=== PATIENT | male | born 1970 | race Caucasian/White ===

== ENCOUNTER → 2017-10-08 16:24 | Outpatient (CLI) | payer OTHER, SELFPAY ==
--- NOTE | 2017-10-08 | XR_ITS ---
XR lumbar spine min 4V Ordering Physician: Loida Appiah Patient Age: 47 years: Male HISTORY: ITS.REASON: LOW BAck pain TECHNIQUE: Five-view lumbar spine series. COMPARISON :None relevant FINDINGS Vertebral bodies are intact . No compression fractures or lesions evident. L5/S1. Mild disc space narrowing and I believe scant anterolisthesis of L5 on S1. Likely 2 mm. Cyst is most likely due to some early degenerative facet changes in this changes at this level the pars interarticularis is thin on right but I believe remains intact bilaterally. Mild Degenerative facet changes bilaterally lower most L-spine most evident at L5/S1 less evident L4/5. Borderline narrowing posterior aspect of L4/5 disc level generous lumbar lordosis from L4 through S1. Pedicles intact as are transverse processes and SI joints. IMPRESSION: 1. Mild degenerative disc space narrowing L5/S1 with mild facet arthropathy L5/S1. These mild degenerative features appear to yield subtle 2-3 mm anterolisthesis of L5 on S1.
== END ==
PROVIDERS: Visit Provider Nurse Practitioner Family
DX: M54.5 Low back pain (principal)
CPT/HCPCS: 72110

== ENCOUNTER → 2021-09-09 16:58 | Outpatient (CLI) | payer OTHER, SELFPAY ==
--- NOTE | 2021-09-09 17:09 | XR_ITS ---
PROCEDURE INFORMATION: Exam: XR Right Knee Exam date and time: 09/09/2021 5:02 PM Age: 50 years old Clinical indication: Knee; Right; Patient HX: Pain for awhile unknown injury TECHNIQUE: Imaging protocol: Radiologic exam of the Right knee. Views: 3 views. COMPARISON: No relevant prior studies available. FINDINGS: Bones/joints: Minimal lateral tibial spine degenerative osteophyte formation. No acute fracture or dislocation. Soft tissues: Normal. IMPRESSION: No acute fracture or dislocation.
== END ==
PROVIDERS: PCP Nurse Practitioner; Visit Provider Nurse Practitioner
DX: M25.561 Pain in right knee (principal)
CPT/HCPCS: 73562

== ENCOUNTER 2022-01-07 16:00 | Outpatient (RCR) | payer OTHER, SELFPAY | END 2022-02-09 09:47 | disposition home or self-care (01) | LOC: PT.CARL 16:00 | PROVIDERS: PCP Nurse Practitioner; Visit Provider Nurse Practitioner | DX: M54.2 Cervicalgia (principal) | CPT/HCPCS: 97010; 97012; 97014; 97110; 97140; 97163; G0283 ==

== ENCOUNTER → 2022-02-04 15:07 | Outpatient (CLI) | payer OTHER, SELFPAY ==
--- NOTE | 2022-02-04 15:13 | MR_ITS ---
FINAL REPORT CLINICAL HISTORY: CERVICAL DISC DISORDER WITH RADICULOPATHY. tingling down rt arm. no injury or trauma. intermittent headache. FINDINGS: Multiplanar MR imaging of the cervical spine was performed without contrast. On the sagittal T2-weighted images, disc degeneration is seen throughout. There is no evidence of fracture. The vertebral alignment is normal. The cervical spinal cord has an unremarkable appearance without evidence of mass, edema or syrinx. No significant canal stenosis is identified. The cervicomedullary junction is normal. C2-3: Small central disc protrusion with mild indentation of the thecal sac. C3-4: Annular disc bulge and small central disc protrusion. C4-5: Annular disc bulge and left paracentral disc protrusion with possible left C5 nerve root impingement. There is mild left neural foraminal narrowing. C5-6: Disc osteophyte complex with severe bilateral neural foraminal narrowing. C6-7: Disc osteophyte complex with moderate right and severe left neural foraminal narrowing. C7-T1: There is no significant canal stenosis or neural foraminal narrowing. IMPRESSION: Multilevel degenerative disc disease with disc protrusion at C4-5 and possible left C5 nerve root impingement. Reviewed, Interpreted and Dictated by Wilfredo Loco III, MD Transcribed by Helen Ramirez Authenticated and [facility]
== END ==
PROVIDERS: PCP Nurse Practitioner; Visit Provider Nurse Practitioner Family
DX: M50.10 Cervical disc disorder with radiculopathy, unspecified cervical region (principal)
CPT/HCPCS: 72141; 76376